=== PATIENT | female | born 1975 | race Caucasian/White ===

== ENCOUNTER 2016-08-16 16:25 | Emergency (ER) | payer MEDICAID ==
[~2016-08-16 16:25] MED LIST: ALBU8.5H5 INH; CETI10TA18 PO; CIPR500T87 PO; HYDR-3138 PO; IBUP800T PO
== END 2016-08-16 18:23 ==
LOC: ED 18:17
DX: R51 Headache (principal); R42 Dizziness and giddiness; Z53.21 Procedure and treatment not carried out due to patient leaving prior to being seen by health care provider

== ENCOUNTER 2019-02-22 09:41 | Emergency (ER) | payer SELFPAY ==
[~2019-02-22] VITALS: Ht 157.5 cm; Wt 70.3 kg
[~2019-02-22 09:41] MED LIST changes: -HYDR-3138 PO; +HYDR-3237 PO; +IBUP-1223 PO; -IBUP800T PO
--- NOTE | 2019-02-22 10:08 | NUR ---
PT CAME IN REPORTING PAIN "ON RIGHT FLANK DURING INHALE". PT HAS HAD A COUGH FOR ABOUT 2 WEEKS AND IT IS GETTING WORSE. PT IS RESTING IN BED. AWAITING X RAY. CALL LIGHT WITHIN REACH
[2019-02-22] MEDS ORDERED: OXYcodone/APAP 5/325MG TABLET ONE (10:12)
[2019-02-22] MEDS ORDERED: OXYcodone/APAP 5/325MG TABLET PO ONE (10:30)
[2019-02-22 10:45] LABS: BASOPHILS # (AUTO) 0.03 x10^3/uL (0-0.1); BASOPHILS % (AUTO) 0 % (0-1); EOSINOPHILS # (AUTO) 0.08 x10^3/uL (0-0.4); EOSINOPHILS % (AUTO) 1 % (1-7); LYMPHOCYTES # (AUTO) 2.32 x10^3/uL (1-3.4); LYMPHOCYTES % (AUTO) 35 % (22-44); MD NO; MEAN CORPUSCULAR HEMOGLOBIN 31.3 pg (27.0-34.8); MEAN CORPUSCULAR HGB CONC 33.7 g/dL (32.4-35.8); MEAN PLATELET VOLUME 7.8 fL (7.4-10.4); MONOCYTES % (AUTO) 6 % (2-9); NEUTROPHILS # (AUTO) 3.78 x10^3/uL (1.8-6.8); NEUTROPHILS % (AUTO) 57 % (42-75); PLATELET COUNT 267 x10^3/uL (130-400); RED BLOOD COUNT 4.38 x10^6/uL (3.82-5.3); RED CELL DISTRIBUTION WIDTH 12.6 % (9.6-15.2)
[2019-02-22 10:52] LABS: ALBUMIN 4.1 g/dL (3.4-5.0); ANION GAP 9 mmol/L (5-15); CALCIUM 9.1 mg/dL (8.5-10.1); CHLORIDE 109 mmol/L (98-107); CREATININE 0.62 mg/dL (0.55-1.02)
[2019-02-22 11:31] VITALS: BP 112/67
--- NOTE | 2019-02-22 11:32 | NUR ---
PT RESTING IN BED. CALL LIGHT WITHIN REACH. REPORTS PAIN IMPROVEMENT.
== END 2019-02-22 11:56 | disposition home or self-care (01) ==
LOC: ED 11:34
DX: M54.6 Pain in thoracic spine (principal); R09.1 Pleurisy; K21.9 Gastro-esophageal reflux disease without esophagitis; F17.200 Nicotine dependence, unspecified, uncomplicated; Z90.49 Acquired absence of other specified parts of digestive tract; Z90.710 Acquired absence of both cervix and uterus
CPT/HCPCS: 36415; 71046; 80048; 82040; 84145; 85025; 93005; 99284

== ENCOUNTER 2019-03-01 06:42 | Emergency (ER) | payer SELFPAY ==
[~2019-03-01] VITALS: Ht 157.5 cm; Wt 69.4 kg
[2019-03-01] MEDS ORDERED: SODIUM CHLORIDE FLUSH 10ML SYR IVF ONE (07:00)
[2019-03-01] MEDS ORDERED: DIAZEPAM 5 MG/ML, 2ML IVPush ONE (07:00)
[2019-03-01] MEDS ORDERED: KETOROLAC 30 MG/1 ML IVPush ONE (07:00)
--- NOTE | 2019-03-01 07:03 | NUR ---
Pt ambulates with steady gait and balance to x-ray. NADN. No needs expressed at this time. No obvious defecits observed.
[2019-03-01] MEDS ORDERED: KETOROLAC 30 MG/1 ML ONE (07:07)
[2019-03-01] MEDS ORDERED: DIAZEPAM 5 MG/ML, 2ML ONE (07:07)
[2019-03-01 07:41] LABS: BASOPHILS # (AUTO) 0.03 x10^3/uL (0-0.1); BASOPHILS % (AUTO) 1 % (0-1); EOSINOPHILS # (AUTO) 0.13 x10^3/uL (0-0.4); EOSINOPHILS % (AUTO) 2 % (1-7); LYMPHOCYTES # (AUTO) 1.47 x10^3/uL (1-3.4); LYMPHOCYTES % (AUTO) 25 % (22-44); MD NO; MEAN CORPUSCULAR HEMOGLOBIN 31.2 pg (27.0-34.8); MEAN CORPUSCULAR HGB CONC 33.5 g/dL (32.4-35.8); MEAN CORPUSCULAR VOLUME 93.2 fL (80-100); MEAN PLATELET VOLUME 7.8 fL (7.4-10.4); MONOCYTES # (AUTO) 0.41 x10^3/uL (0.2-0.8); MONOCYTES % (AUTO) 7 % (2-9); NEUTROPHILS # (AUTO) 3.85 x10^3/uL (1.8-6.8); NEUTROPHILS % (AUTO) 65 % (42-75); PLATELET COUNT 214 x10^3/uL (130-400); RED BLOOD COUNT 4.06 x10^6/uL (3.82-5.3); RED CELL DISTRIBUTION WIDTH 12.7 % (9.6-15.2)
[2019-03-01 08:00] LABS: ALBUMIN 3.7 g/dL (3.4-5.0); ANION GAP 6 mmol/L (5-15); CALCIUM 9.2 mg/dL (8.5-10.1); CHLORIDE 113 mmol/L (98-107); CREATININE 0.64 mg/dL (0.55-1.02)
[2019-03-01 08:04] LABS: TROPONIN I < 0.015 ng/mL (0.000-0.045)
--- NOTE | 2019-03-01 08:58 | NUR ---
Patient given discharge instructions and they have confirmed that they understand the instructions. Patient ambulatory with steady gait. Pt left with Rx, D/C paperwork, and all personal belongings. NADN. No needs expressed.
[2019-03-01 08:59] VITALS: BP 112/64
== END 2019-03-01 09:01 | disposition home or self-care (01) ==
LOC: ED 07:56
DX: S39.012A Strain of muscle, fascia and tendon of lower back, initial encounter (principal); S29.012A Strain of muscle and tendon of back wall of thorax, initial encounter; G43.909 Migraine, unspecified, not intractable, without status migrainosus; F17.210 Nicotine dependence, cigarettes, uncomplicated; Z90.49 Acquired absence of other specified parts of digestive tract; Z90.710 Acquired absence of both cervix and uterus; X58.XXXA Exposure to other specified factors, initial encounter; Y93.89 Activity, other specified; Y92.89 Other specified places as the place of occurrence of the external cause; Y99.8 Other external cause status
CPT/HCPCS: 36415; 71046; 80048; 82040; 83880; 84484; 85025; 85379; 93005; 96374; 96375; 99284; J1885; J3360

== ENCOUNTER → 2019-11-20 | Outpatient (CLI) | payer MEDICAID | END | disposition home or self-care (01) | LOC: RAD 16:04 | PROVIDERS: ATTEND Family Medicine | DX: N20.0 Calculus of kidney (principal); N28.89 Other specified disorders of kidney and ureter; R31.9 Hematuria, unspecified | CPT/HCPCS: 74176 ==

== ENCOUNTER 2020-01-14 14:21 | Emergency (ER) | payer MEDICAID ==
[~2020-01-14] VITALS: Ht 157.5 cm; Wt 66.2 kg
--- NOTE | 2020-01-14 14:49 | NUR ---
CLEAN CATCH URINE COLLECTED/SENT TO LAB.
[2020-01-14 15:48] LABS: MICROSCOPIC AUTO
[2020-01-14] MEDS ORDERED: ONDANSETRON 2MG/ML, 2ML ONE (15:51)
[2020-01-14] MEDS ORDERED: MORPHINE SULFATE 4 MG/ML, 1ML ONE (15:52)
[2020-01-14 15:57] VITALS: BP 122/71
--- NOTE | 2020-01-14 15:59 | NUR ---
PIV INITIATED, PT MEDICATED PER MAY. VSS, NO OTHER NEED AT THIS ITME
[2020-01-14] MEDS ORDERED: ONDANSETRON 2MG/ML, 2ML IVPush ONE (16:00)
[2020-01-14] MEDS ORDERED: MORPHINE SULFATE 4 MG/ML, 1ML IVPush PRN (16:00)
[2020-01-14 16:20] LABS: BASOPHILS % (AUTO) 1 % (0-1); EOSINOPHILS % (AUTO) 1 % (1-7); LYMPHOCYTES % (AUTO) 27 % (22-44); MEAN CORPUSCULAR HEMOGLOBIN 31.3 pg (27.0-34.8); MEAN CORPUSCULAR HGB CONC 33.6 g/dL (32.4-35.8); MEAN PLATELET VOLUME 7.8 fL (7.4-10.4); MONOCYTES % (AUTO) 6 % (2-9); NEUTROPHILS % (AUTO) 65 % (42-75); PLATELET COUNT 280 x10^3/uL (130-400); RED BLOOD COUNT 4.72 x10^6/uL (3.82-5.3); RED CELL DISTRIBUTION WIDTH 12.2 % (9.6-15.2)
[2020-01-14 16:27] LABS: ALANINE AMINOTRANSFERASE 20 U/L (12-78); ALBUMIN 4.3 g/dL (3.4-5.0); ANION GAP 7 mmol/L (5-15); CALCIUM 9.3 mg/dL (8.5-10.1); CHLORIDE 111 mmol/L (98-107)
[2020-01-14 16:32] LABS: ALKALINE PHOSPHATASE 95 U/L (45-117); BILIRUBIN,TOTAL 0.5 mg/dL (0.2-1.0); CREATININE 0.66 mg/dL (0.55-1.02); MD NO; TOTAL PROTEIN 8.3 g/dL (6.4-8.2)
[2020-01-14] MEDS ORDERED: KETOROLAC 30 MG/1 ML ONE (17:11)
[2020-01-14] MEDS ORDERED: KETOROLAC 30 MG/1 ML IVPush ONE (17:30)
== END 2020-01-14 17:51 | disposition home or self-care (01) ==
LOC: ED 17:30
DX: N20.0 Calculus of kidney (principal); R31.9 Hematuria, unspecified; R10.9 Unspecified abdominal pain; R31.29 Other microscopic hematuria; Z98.51 Tubal ligation status; Z90.710 Acquired absence of both cervix and uterus
CPT/HCPCS: 36415; 76770; 80053; 81001; 84703; 85025; 87086; 96374; 96375; 99284; J2270; J2405